=== PATIENT | male | born 1955 | race African-American/Black ===

== ENCOUNTER 2025-02-17 19:37 | Inpatient (IN) | payer BC, MEDICAID ==
[~2025-02-17] VITALS: Ht 182.9 cm; Wt 77.6 kg
[2025-02-17 20:31] LABS: BASOPHILS % 1.2 % (0.0-2.0); EOSINOPHILS % 0.4 % (0.0-5.0); HEMATOCRIT. 44.4 % (42.0-52.0); HEMOGLOBIN. 14.1 g/dL (14.0-18.0); LYMPHOCYTES % 19.6 % (20.0-50.0); MONOCYTES % 8.8 % (2.0-8.0); NEUTROPHILS % 70.0 % (40.0-76.0); RED BLOOD CELL COUNT 4.59 mill/uL (4.7-6.1); RED CELL DISTRIBUTION WIDTH 18.2 % (11.6-14.6)
[2025-02-17 20:45] LABS: CREATININE 1.8 mg/dL (0.6-1.3)
[2025-02-17 20:46] LABS: UREA NITROGEN BLOOD 28 mg/dL (9-23)
[2025-02-17 20:47] LABS: TROPONIN I HIGH SENSITIVITY 42 ng/L (3.0-53)
[2025-02-17 20:57] LABS: MEAN PLATELET VOLUME 9.8 fl (7.4-10.4); PLATELET 205 x1000/uL (130-400)
[2025-02-17] MEDS: FUROSEMIDE 40MG/4ML VIAL IVP ONE (21:36)
[2025-02-17 21:52] LABS: COLOR URINE YELLOW (YELLOW)
[2025-02-17 21:53] LABS: CLARITY URINE CLEAR (CLEAR); GLUCOSE URINE 3+ (NEGATIVE); KETONES URINE NEGATIVE (NEGATIVE); LEUKOCYTE ESTERASE URINE NEGATIVE (NEGATIVE); NITRITE URINE NEGATIVE (NEGATIVE); OCCULT BLOOD URINE NEGATIVE (NEGATIVE); PH URINE 5.5 (4.5-8.0); PROTEIN URINE 2+ (NEGATIVE); SPECIFIC GRAVITY URINE 1.026 (1.005-1.030); UROBILINOGEN URINE 1.0 E.U./dL (0.2-1.0)
[2025-02-17 22:00] VITALS: BP 139/92; PULSE 69; RESP 20; TEMP 36.2
[2025-02-17 22:05] LABS: BACTERIA URINE TRACE; RBC URINE NONE SEEN /hpf (0-2); SQUAMOUS EPITHELIAL CELL URINE FEW /lpf (RARE/1+); WBC URINE 0-2 /hpf (0-2)
[2025-02-17] MEDS ORDERED: DOCUSATE SODIUM 100MG CAPSULE PO PRN (22:30)
[2025-02-17] MEDS ORDERED: ACETAMINOPHEN 325MG TABLET PO PRN ×2 (22:30)
[2025-02-17] MEDS ORDERED: IPRATROPIUM/ALBUTEROL 0.5-3(2.5)MG/3ML NEB HHN SCH (22:30)
[2025-02-17] MEDS ORDERED: ONDANSETRON HCL 4MG/2ML INJ IV PRN (22:30)
[2025-02-17] MEDS ORDERED: IPRATROPIUM/ALBUTEROL 0.5-3(2.5)MG/3ML NEB HHN PRN (22:30)
[2025-02-17] MEDS ORDERED: CLONIDINE 0.1MG TABLET PO PRN (22:30)
[2025-02-17] MEDS: CEFTRIAXONE 1GM/50ML 50 ML IV SCH (23:39)
[2025-02-17] MEDS: AZITHROMYCIN 500MG/250ML 250 ML IV SCH (23:39)
[2025-02-18] VITALS (7 sets, daily range): BP systolic 107–134; BP diastolic 45–96; PULSE 63–89; RESP 17–22; TEMP 36.1–36.7; O2SAT 93–99
[2025-02-18 01:19] LABS: *AMPHETAMINES SCREEN URINE NEGATIVE (NEGATIVE); *BARBITURATES SCREEN URINE NEGATIVE (NEGATIVE); *BENZODIAZEPINES SCREEN URINE NEGATIVE (NEGATIVE); *COCAINE SCREEN URINE PRESUMPTIVE POSITIVE (NEGATIVE); CANNABINOID URINE SCREEN NEGATIVE (NEGATIVE); ECSTASY MDMA SCREEN URINE NEGATIVE (NEGATIVE); METHADONE URINE SCREEN NEGATIVE (NEGATIVE); OPIATES URINE SCREEN NEGATIVE (NEGATIVE); PHENCYCLIDINE URINE SCREEN NEGATIVE (NEGATIVE)
[2025-02-18] MEDS: HYDRALAZINE HCL 50MG TABLET PO SCH (07:16)
[2025-02-18] MEDS: IPRATROPIUM/ALBUTEROL 0.5-3(2.5)MG/3ML NEB HHN SCH (07:39)
[2025-02-18 09:02] LABS: CREATINE KINASE MB FRACTION 3.0 ng/mL (0.5-3.6); TROPONIN I HIGH SENSITIVITY 41.0 ng/L (3.0-53)
[2025-02-18] MEDS: FUROSEMIDE 40MG/4ML VIAL IVP SCH (09:12)
[2025-02-18] MEDS: PANTOPRAZOLE SODIUM 40 MG/VIAL IV SCH (09:12)
[2025-02-18] MEDS: ASPIRIN 81MG TABLET PO SCH (09:12)
[2025-02-18] MEDS: ENOXAPARIN 40MG/0.4ML SYR SUBCUT SCH (09:14)
[2025-02-18] MEDS: MAGNESIUM 2 G PREMIX 50 ML IV NR (14:37)
[2025-02-18] MEDS: THROAT LOZENGES-BENZOCAINE/MENTH/CETYLPYRD CL LOZENGES MM PRN (21:29)
[2025-02-18 21:52] LABS: BASOPHILS % 1.3 % (0.0-2.0); EOSINOPHILS % 1.6 % (0.0-5.0); HEMATOCRIT. 44.3 % (42.0-52.0); HEMOGLOBIN. 14.2 g/dL (14.0-18.0); LYMPHOCYTES % 18.3 % (20.0-50.0); MEAN PLATELET VOLUME 9.8 fl (7.4-10.4); MONOCYTES % 9.0 % (2.0-8.0); NEUTROPHILS % 69.8 % (40.0-76.0); PLATELET 207 x1000/uL (130-400); RED BLOOD CELL COUNT 4.62 mill/uL (4.7-6.1); RED CELL DISTRIBUTION WIDTH 17.7 % (11.6-14.6)
[2025-02-18 22:05] LABS: CREATININE 1.6 mg/dL (0.6-1.3); UREA NITROGEN BLOOD 27 mg/dL (9-23)
[2025-02-18 22:07] LABS: ASPARTATE AMINOTRANSFERASE 57 IU/L (<34); BILIRUBIN TOTAL 1.0 mg/dL (0.1-1.0); CREATINE KINASE MB FRACTION 4.4 ng/mL (0.5-3.6); PROTEIN TOTAL 6.0 g/dL (6.0-8.3); TROPONIN I HIGH SENSITIVITY 50 ng/L (3.0-53)
[2025-02-19] VITALS (8 sets, daily range): BP systolic 126–137; BP diastolic 65–93; PULSE 78–101; RESP 18–20; TEMP 36.1–36.7; O2SAT 96–99
[2025-02-19 08:35] LABS: BASOPHILS % 1.4 % (0.0-2.0); EOSINOPHILS % 2.3 % (0.0-5.0); HEMATOCRIT. 41.0 % (42.0-52.0); HEMOGLOBIN. 13.3 g/dL (14.0-18.0); LYMPHOCYTES % 13.9 % (20.0-50.0); MEAN PLATELET VOLUME 10.0 fl (7.4-10.4); MONOCYTES % 8.1 % (2.0-8.0); NEUTROPHILS % 74.3 % (40.0-76.0); PLATELET 174 x1000/uL (130-400); RED BLOOD CELL COUNT 4.32 mill/uL (4.7-6.1); RED CELL DISTRIBUTION WIDTH 17.3 % (11.6-14.6)
[2025-02-19 08:47] LABS: CREATININE 1.6 mg/dL (0.6-1.3)
[2025-02-19 08:48] LABS: UREA NITROGEN BLOOD 27.0 mg/dL (9-23)
[2025-02-19] MEDS ORDERED: FURO40TA5 PO (11:35)
[2025-02-19] MEDS ORDERED: METO-396 PO (17:12)
[2025-02-19] MEDS ORDERED: BUSP7.5T7 PO (17:12)
[2025-02-19] MEDS ORDERED: APIX5TAB PO (17:12)
[2025-02-19] MEDS ORDERED: METO-385 PO (17:12)
[2025-02-19] MEDS ORDERED: ATOR10TA69 PO (17:12)
[2025-02-19] MEDS ORDERED: LOSA25TA26 PO (17:12)
[2025-02-19] MEDS ORDERED: EMPA10TA PO (17:12)
[2025-02-19] MEDS ORDERED: *PATIENT'S OWN MEDICATION STORAGE XX SCH (17:30)
[2025-02-19] MEDS: THROAT LOZENGES-BENZOCAINE/MENTH/CETYLPYRD CL LOZENGES MM PRN (18:53)
[2025-02-20] VITALS (11 sets, daily range): BP systolic 123–133; BP diastolic 79–95; PULSE 72–105; RESP 17–20; TEMP 36.2–36.7; O2SAT 95–100
[2025-02-20 08:29] LABS: CREATININE 1.3 mg/dL (0.6-1.3)
[2025-02-20 08:30] LABS: UREA NITROGEN BLOOD 22 mg/dL (9-23)
[2025-02-21] VITALS (10 sets, daily range): BP systolic 115–130; BP diastolic 69–85; PULSE 76–103; RESP 18–20; TEMP 36.4–37.1; O2SAT 90–98
[2025-02-21 06:45] LABS: CREATININE 1.3 mg/dL (0.6-1.3); UREA NITROGEN BLOOD 22 mg/dL (9-23)
[2025-02-21] MEDS: METOPROLOL SUCCINATE 50MG ER TABLET PO SCH (14:38)
[2025-02-22] VITALS (10 sets, daily range): BP systolic 110–135; BP diastolic 57–95; PULSE 91–113; RESP 18–20; TEMP 36.3–37; O2SAT 94–98
[2025-02-22] MEDS: EMPAGLIFLOZIN 10MG TABLET PO SCH (09:23)
[2025-02-22 17:53] LABS: BASOPHILS % 2.0 % (0.0-2.0); EOSINOPHILS % 4.1 % (0.0-5.0); HEMATOCRIT. 39.4 % (42.0-52.0); HEMOGLOBIN. 12.9 g/dL (14.0-18.0); LYMPHOCYTES % 26.3 % (20.0-50.0); MEAN PLATELET VOLUME 10.3 fl (7.4-10.4); MONOCYTES % 14.1 % (2.0-8.0); NEUTROPHILS % 53.5 % (40.0-76.0); PLATELET 169 x1000/uL (130-400); RED BLOOD CELL COUNT 4.15 mill/uL (4.7-6.1); RED CELL DISTRIBUTION WIDTH 16.8 % (11.6-14.6)
[2025-02-22 18:09] LABS: CREATININE 1.2 mg/dL (0.6-1.3); UREA NITROGEN BLOOD 23 mg/dL (9-23)
[2025-02-23] VITALS: BP 135/84; PULSE 91; RESP 20; TEMP 36.7; O2SAT 99
[2025-02-23 04:00] VITALS: BP 122/79; PULSE 97; RESP 20; TEMP 36.2; O2SAT 95
[2025-02-23 08:30] VITALS: BP 128/92; PULSE 103; RESP 18; TEMP 36.5; O2SAT 99
[2025-02-23 12:30] VITALS: BP 131/83; PULSE 105; RESP 18; TEMP 36.5; O2SAT 99
[2025-02-23] MEDS ORDERED: ASPI-1497 MT (12:59)
[2025-02-23] MEDS ORDERED: EMPA10TA MT (12:59)
[2025-02-23] MEDS ORDERED: FURO-151 MT (12:59)
[2025-02-23] MEDS ORDERED: METO25TA6 MT (12:59)
[2025-02-23] MEDS ORDERED: LOSA50TA41 MT (12:59)
[2025-02-23 13:44] VITALS: BP 131/83; PULSE 105; TEMP 97.7; O2SAT 99
== END 2025-02-23 15:40 | disposition home or self-care (01) | DRG 291 ==
LOC: ER 19:37 → EDBEDREQTM 21:07 → EDBEDREQ 21:07 → 8WST 21:51
PROVIDERS: ADMIT Internal Medicine; ATTEND Internal Medicine
DX: I13.0 Hypertensive heart and chronic kidney disease with heart failure and stage 1 through stage 4 chronic kidney disease, or unspecified chronic kidney disease (principal); I50.23 Acute on chronic systolic (congestive) heart failure; J96.01 Acute respiratory failure with hypoxia; N17.9 Acute kidney failure, unspecified; Z59.00 Homelessness unspecified; E78.5 Hyperlipidemia, unspecified; N18.9 Chronic kidney disease, unspecified; F14.10 Cocaine abuse, uncomplicated; I27.20 Pulmonary hypertension, unspecified; Z91.148 Patient's other noncompliance with medication regimen for other reason; F19.10 Other psychoactive substance abuse, uncomplicated; I49.3 Ventricular premature depolarization; I50.9 Heart failure, unspecified; J44.9 Chronic obstructive pulmonary disease, unspecified; I42.0 Dilated cardiomyopathy; Z87.891 Personal history of nicotine dependence
CPT/HCPCS: 36415; 71045; 76604; 80048; 80053; 80305; 81003; 82550; 82553; 83735; 83880; 84484; 85025; 93005; 93306; 93970; 94070; 94640; 94664; 97161; 98960; 99285; J0456; J0696; J1650; J1938; J2470; J3475